=== PATIENT | female | born 2000 | race Caucasian/White ===

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

== ENCOUNTER 2022-11-24 13:06 | Emergency (ER) | payer OTHER ==
--- NOTE | 2022-11-24 13:48 | ED ---
Female Urogenital HPI - General Source: RN notes reviewed <Matilda Barrera - Last Filed: 11/24/22 13:46> - General Source: patient, family, RN notes reviewed <Elizabeth Lopez - Last Filed: 11/25/22 00:27> - General Stated complaint: vaginal pain, recurring uti Time Seen by Provider: 11/24/22 13:46 - History of Present Illness Initial comments: Patient is a 21-year-old female who presents the emergency department for burning with urination. Patient has been on Bactrim since Tuesday without relief. She denies fever, chills, nausea, vomiting. Denies vaginal discharge and itching. No concerns for sexually transmitted infections. (Matilda Barrera) 21-year-old female presents to the emergency department chief complaint of burning following urination. She has been on treatment for urinary tract infection since Tuesday and states that she has not had any improvement. She states that she gets this pain monthly after her menstrual cycle. She states that it has been getting worse. She states that she has had antibiotics for urinary tract infection in the past for the same symptoms which possibly have provided relief. She denies fever, chills, nausea, vomiting. Denies vaginal discharge, itching, odor. Denies urinary frequency. She states that she is sexually active with one partner and has no concerns for sexually transmitted infection. (Elizabeth Lopez) - Related Data Allergies Allergy/AdvReac Type Severity Reaction Status Date / Time No Known Allergies Allergy Verified 11/24/22 13:59 Review of Systems ROS Other: All systems not noted in ROS Statement are negative. <Matilda Barrera - Last Filed: 11/24/22 13:46> ROS Other: All systems not noted in ROS Statement are negative. <Elizabeth Lopez - Last Filed: 11/25/22 00:27> ROS Statement: Those systems with pertinent positive or pertinent negative responses have been documented in the HPI. Past Medical History Past Medical History: No Reported History History of Any Multi-Drug Resistant Organisms: None Reported Past Surgical History: No Surgical Hx Reported Past Psychological History: No Psychological Hx Reported Past Alcohol Use History: None Reported Past Drug Use History: None Reported <Matilda Barrera - Last Filed: 11/24/22 13:46> General Exam <Matilda Barrera - Last Filed: 11/24/22 13:46> Limitations: no limitations General appearance: alert, in no apparent distress Head exam: Present: atraumatic, normocephalic, normal inspection Eye exam: Present: normal appearance, PERRL, EOMI. Absent: scleral icterus, conjunctival injection, periorbital swelling ENT exam: Present: normal exam, mucous membranes moist Neck exam: Present: normal inspection. Absent: tenderness, meningismus, lymphadenopathy Respiratory exam: Present: normal lung sounds bilaterally. Absent: respiratory distress, wheezes, rales, rhonchi, stridor Cardiovascular Exam: Present: regular rate, normal rhythm, normal heart sounds. Absent: systolic murmur, diastolic murmur, rubs, gallop, clicks GI/Abdominal exam: Present: soft, normal bowel sounds. Absent: distended, tenderness, guarding, rebound, rigid External exam: Present: normal external exam Speculum exam: Present: vaginal discharge By manual exam: Present: normal by manual exam Extremities exam: Present: normal inspection, full ROM, normal capillary refill. Absent: tenderness, pedal edema, joint swelling, calf tenderness Back exam: Present: normal inspection Neurological exam: Present: alert, oriented X3 Psychiatric exam: Present: normal affect, normal mood Skin exam: Present: warm, dry, intact, normal color. Absent: rash <Elizabeth Lopez - Last Filed: 11/25/22 00:27> - General Exam Comments Initial Comments: Visual Physical Exam Vital signs reviewed General: Well-appearing, nontoxic, no acute distress. Head: Normocephalic, atraumatic Eyes: PERRLA, EOMI ENT: Airway patent Chest: Nonlabored breathing Skin: No visual rash, normal skin tone Neuro: Alert and oriented 3 Musculoskeletal: No gross abnormalities (HollyMatilda) Course Vital Signs 11/24/22 11/24/22 13:54 18:29 Temperature 99 F 98.7 F Pulse Rate 96 87 Respiratory 18 16 Rate Blood Pressure 136/85 129/72 O2 Sat by Pulse 98 98 Oximetry Medical Decision Making <Elizabeth Lopez - Last Filed: 11/25/22 00:27> - Medical Decision Making Was pt. sent in by a medical professional or institution (, PA, PROFESSIONAL EMPLOYER CONSULTANT, urgent care, hospital, or jail...) When possible be specific @ -No Did you speak to anyone other than the patient for history (EMS, parent, family, police, friend...)? What history was obtained from this source @ -No Did you review nursing and triage notes (agree or disagree)? Why? @ -I reviewed and agree with nursing and triage notes Were old charts reviewed (outside hosp., previous admission, EMS record, old EKG, old radiological studies, urgent care reports/EKG's, jail records)? Report findings @ -No old charts were reviewed Differential Diagnosis (chest pain, altered mental status, abdominal pain women, abdominal pain men, vaginal bleeding, weakness, fever, dyspnea, syncope, headache, dizziness, GI bleed, back pain, seizure, CVA, palpatations, mental health, musculoskeletal)? @ -UTI, BV, vaginitis, PID, this list is not all-inclusive EKG interpreted by me (3pts min.). @ -None X-rays interpreted by me (1pt min.). @ -None done CT interpreted by me (1pt min.). @ -None done U/S interpreted by me (1pt. min.). @ -None done What testing was considered but not performed or refused? (CT, X-rays, U/S, labs)? Why? @ -None What meds were considered but not given or refused? Why? @ -None Did you discuss the management of the patient with other professionals (professionals i.e. , PA, PROFESSIONAL EMPLOYER CONSULTANT, lab, RT, psych nurse, psychiatric social worker, hydraulic repairer, teacher, human resources officer, corrections caseworker)? Give summary @ -No Was smoking cessation discussed for >3mins.? @ -No Was critical care preformed (if so, how long)? @ -No Were there social determinants of health that impacted care today? How? (Homelessness, low income, unemployed, alcoholism, drug addiction, transportation, low edu. Level, literacy, decrease access to med. care, fci, rehab)? @ -No Was there de-escalation of care discussed even if they declined (Discuss DNR or withdrawal of care, Hospice)? DNR status @ -No What co-morbidities impacted this encounter? (DM, HTN, Smoking, COPD, CAD, Cancer, CVA, ARF, Chemo, Hep., AIDS, mental health diagnosis, sleep apnea, morbid obesity)? @ -None Was patient admitted / discharged? Hospital course, mention meds given and route, prescriptions, significant lab abnormalities, going to OR and other pertinent info. @ -Discharge. Patient presented to emergency department chief complaint of burning following urination. Patient was being treated for urinary tract infection but has not had any improvement. UA within normal limits except for culture. Pelvic exam was performed which is not grossly abnormal. Vaginal culture sent and we'll call with results for any abnormality. Patient advised of these findings and to follow up with gynecology and urology for further evaluation. Advised to alternate Tylenol and Motrin as needed for pain. Patient stable at time of discharge. Case discussed with my attending,Dr. Trotter Undiagnosed new problem with uncertain prognosis? @ -No Drug Therapy requiring intensive monitoring for toxicity (Heparin, Nitro, Insulin, Cardizem)? @ -No Were any procedures done? @ -No Diagnosis/symptom? @ -Dysuria Acute, or Chronic, or Acute on Chronic? @ -Acute Uncomplicated (without systemic symptoms) or Complicated (systemic symptoms)? @ -Uncomplicated Side effects of treatment? @ -No Exacerbation, Progression, or Severe Exacerbation? @ -No Poses a threat to life or bodily function? How? (Chest pain, [place], MA, pneumonia, PE, COPD, DKA, ARF, appy, cholecystitis, CVA, Diverticulitis, Homicidal, Suicidal, threat to staff... and all critical care pts) @ -No (Elizabeth Lopez) - Lab Data Lab Results 11/24/22 Range/Units 14:02 Urine Color Light Yellow Urine Appearance Clear (Clear) Urine pH 5.5 (5.0-8.0) Ur Specific [place] 1.004 (1.001-1.035) Urine Protein Negative (Negative) Urine Glucose (UA) Negative (Negative) Urine Ketones Negative (Negative) Urine Blood Negative (Negative) Urine Nitrite Negative (Negative) Urine Bilirubin Negative (Negative) Urine Urobilinogen <2.0 (<2.0) mg/dL Ur Leukocyte Esterase Negative (Negative) Disposition <Matilda Barrera - Last Filed: 11/24/22 13:46> Is patient prescribed a controlled substance at d/c from ED?: No Time of Disposition: 17:58 <Elizabeth Lopez - Last Filed: 11/25/22 00:27> Clinical Impression: Dysuria Disposition: HOME SELF-CARE Condition: Stable Instructions (If sedation given, give patient instructions): Dysuria (ED) Additional Instructions: Alternate Tylenol and Motrin as needed for pain. Follow-up with your primary care provider and urology. Return to the emergency department for new or worsening symptoms. Referrals: Alexis Velasco MD [Primary Care Provider] - 1-2 days José Miguel Steiner MD [STAFF PHYSICIAN] - 1-2 days
[2022-11-24 14:35] LABS: Appearance,Urine Clear (Clear); Bilirubin,Urine Negative (Negative); Blood,Urine Negative (Negative); Color,Urine Light Yellow; Glucose,Urine (UA) Negative (Negative); Ketones,Urine Negative (Negative); Leukocyte Esterase,Urine Negative (Negative); Nitrite,Urine Negative (Negative); PH, Urine 5.5 (5.0-8.0); Protein,Urine Negative (Negative); Specific Gravity,Urine 1.004 (1.001-1.035); Urobilinogen,Urine <2.0 mg/dL (<2.0)
[2022-11-24 18:31] VITALS: BP 129/72; PULSE 87; RESP 16; TEMP 98.7
== END 2022-11-24 18:31 | disposition home or self-care (01) ==
LOC: EC 13:06
DX: R30.0 Dysuria (principal)
CPT/HCPCS: 81003; 87070; 99283

== ENCOUNTER → 2022-12-24 | Outpatient (CLI) | payer OTHER ==
--- NOTE | 2022-12-24 16:07 | US ---
EXAMINATION TYPE: US pelvic complete DATE OF EXAM: 12/24/2022 COMPARISON: NONE CLINICAL INDICATION: Female, 21 years old with history of R10.2 PELVIC AND PERINEAL PAIN; Pt states g eneralized pelvic pain x couple of months TECHNIQUE: Transabdominal (TA). Transabdominal sonographic images of the pelvis were acquired. Date of LMP: 12/12/2022 EXAM MEASUREMENTS: Uterus: 7.6 x 3.5 x 4.0 cm Endometrial Stripe: 0.4 cm Right Ovary: 2.5 x 2.1 x 1.4 cm Left Ovary: 1.8 x 2.2 x 2.0 cm 1. Uterus: Anteverted wnl 2. Endometrium: wnl 3. Right Ovary: wnl 4. Left Ovary: wnl 5. Bilateral Adnexa: wnl 6. Posterior cul-de-sac: wnl No abnormality visualized within pelvis IMPRESSION: No discrete abnormality seen.
== END | disposition home or self-care (01) ==
LOC: RADUSWWP 15:43
PROVIDERS: ATTEND Family Medicine
DX: R10.2 Pelvic and perineal pain (principal)
CPT/HCPCS: 76856

== ENCOUNTER → 2023-02-01 | Outpatient (CLI) | payer OTHER ==
[2023-02-01 15:23] LABS: Appearance,Urine Clear (Clear); Bilirubin,Urine Negative (Negative); Blood,Urine Negative (Negative); Color,Urine Yellow (Yellow); Ketones,Urine Trace (Negative); Nitrite,Urine Negative (Negative); PH, Urine 6.5; Specific Gravity,Urine 1.025 (1.001-1.030)
[2023-02-01 15:53] LABS: Basophils # (A) 0.03 X 10*3/uL (0.00-0.10); Basophils % (A) 0.3 %; HCT 43.6 % (37.2-46.3); HGB 14.5 d/dL (12.0-15.0); Lymphocytes # (A) 1.69 X 10*3/uL (0.90-5.00); MCH 29.1 pg (27.0-32.0); MCHC 33.3 d/dL (32.0-37.0); MCV 87.4 FL (80.0-97.0); Mean Platelet Volume 11.4 FL (9.5-12.2); Monocytes # (A) 0.83 X 10*3/uL (0.20-1.00); Monocytes % (A) 8.3 %; NRBC Per 100 WBC 0 X 10*3/uL (0.00-0.01); Neutrophils # (A) 7.18 X 10*3/uL (1.80-7.70); Platelet Count 242 X 10*3/uL (140-440); RBC 4.99 X 10*6/uL (4.10-5.20); RDW 12.3 % (11.5-14.5); WBC 9.97 X 10*3/uL (4.50-10.00)
[2023-02-01 16:06] LABS: BUN/Creat Ratio 8.44 Ratio (12.00-20.00); Blood Urea Nitrogen 7.6 mg/dL (9.0-27.0); Calcium 9.6 mg/dL (8.7-10.3); Chloride 104 mmol/L (96-109); Glucose 104 mg/dL (70-110); Potassium 3.8 mmol/L (3.5-5.5); Sodium 137 mmol/L (135-145)
[2023-02-01 17:00] LABS: Bacteria,Urine 2+ (None Seen)
== END | disposition home or self-care (01) ==
LOC: LABPAT 09:16
PROVIDERS: ATTEND Urology
DX: Z01.812 Encounter for preprocedural laboratory examination (principal); R31.0 Gross hematuria; R31.29 Other microscopic hematuria
CPT/HCPCS: 80048; 81001; 85025; 87086

== ENCOUNTER 2023-07-20 15:12 | Emergency (ER) | payer OTHER ==
--- NOTE | 2023-07-20 15:31 | ED ---
Abdominal Pain HPI - General Source: patient, RN notes reviewed Mode of arrival: ambulatory Limitations: no limitations <Sonia Jameson - Last Filed: 07/20/23 15:30> - General Source: RN notes reviewed, old records reviewed Mode of arrival: ambulatory Limitations: no limitations - History of Present Illness MD Complaint: abdominal pain (Hemorrhoid pain) -: days(s) Migration to: no migration Severity: severe Severity scale (1-10): 9 Consistency: intermittent Improves With: nothing Worsens With: nothing Treatments Prior to Arrival: other (0) <Tre Jackson - Last Filed: 07/28/23 01:31> - General Stated Complaint: hemorrhoid flare up with abd/back pain Time Seen by Provider: 07/20/23 15:30 - History of Present Illness Initial Comments: Quick note: Patient is a 22-year-old female presented to the ER with chief complaint of hemorrhoid flare and bilateral abdominal and flank pain. Patient states this been going on for couple of days. Denies any urinary complaints, constipation or diarrhea. (Sonia Jameson) This is a 22-year-old female to ER for evaluation of increasing abdominal pain occasional abdominal pain with known history of hemorrhoids and some bleeding when she wipes her bottom. Patient has no acute bleeding here in the ER no nausea vomiting, no fevers (Tre Jackson) - Related Data Home Medications Medication Instructions Recorded Confirmed Escitalopram [Lexapro] 20 mg PO QAM 02/03/23 02/08/23 Marisela Fe 1.5 - 30 tab PO QAM 02/03/23 02/08/23 Previous Rx's Medication Instructions Recorded Ketorolac [Toradol] 10 mg PO Q6HR PRN #10 tab 02/08/23 Hydrocortisone Suppository 25 mg RECTAL BID #30 suppositor 07/20/23 [Anusol-Hc] Hydrocortisone [Anusol-Hc] 1 applic RECTAL BID #30 gm 07/20/23 Allergies Allergy/AdvReac Type Severity Reaction Status Date / Time No Known Allergies Allergy Verified 07/20/23 15:35 Review of Systems ROS Other: All systems not noted in ROS Statement are negative. <Sonia Jameson - Last Filed: 07/20/23 15:30> ROS Other: All systems not noted in ROS Statement are negative. <Tre Jackson - Last Filed: 07/28/23 01:31> ROS Statement: Those systems with pertinent positive or pertinent negative responses have been documented in the HPI. Past Medical History Past Medical History: No Reported History History of Any Multi-Drug Resistant Organisms: None Reported Past Surgical History: Orthopedic Surgery Additional Past Surgical History / Comment(s): knee Smoking Status: Never smoker <Sonia Jameson - Last Filed: 07/20/23 15:30> General Exam <Sonia Jameson - Last Filed: 07/20/23 15:30> General appearance: alert, in no apparent distress Head exam: Present: atraumatic, normocephalic, normal inspection Eye exam: Present: normal appearance, PERRL, EOMI. Absent: scleral icterus, conjunctival injection, periorbital swelling ENT exam: Present: normal exam, mucous membranes moist Neck exam: Present: normal inspection. Absent: tenderness, meningismus, lymphadenopathy Respiratory exam: Present: normal lung sounds bilaterally. Absent: respiratory distress, wheezes, rales, rhonchi, stridor Cardiovascular Exam: Present: regular rate, normal rhythm, normal heart sounds. Absent: systolic murmur, diastolic murmur, rubs, gallop, clicks GI/Abdominal exam: Present: soft, normal bowel sounds. Absent: distended, tenderness, guarding, rebound, rigid Rectal exam: Present: hemorrhoids Extremities exam: Present: normal inspection, full ROM, normal capillary refill. Absent: tenderness, pedal edema, joint swelling, calf tenderness Back exam: Present: normal inspection Neurological exam: Present: alert, oriented X3, CN II-XII intact Psychiatric exam: Present: normal affect, normal mood Skin exam: Present: warm, dry, intact, normal color. Absent: rash <Tre Jackson - Last Filed: 07/28/23 01:31> - General Exam Comments Initial Comments: Visual Physical Exam Vital signs reviewed General: Well-appearing, nontoxic, no acute distress. Head: Normocephalic, atraumatic Eyes: PERRLA, EOMI ENT: Airway patent Chest: Nonlabored breathing Skin: No visual rash, normal skin tone Neuro: Alert and oriented 3 Musculoskeletal: No gross abnormalities (Sonia Jameson) Course <Tre Jackson - Last Filed: 07/28/23 01:31> Vital Signs 07/20/23 15:31 Temperature 99.7 F H Pulse Rate 98 Respiratory 18 Rate Blood Pressure 139/84 O2 Sat by Pulse 97 Oximetry - Reevaluation(s) Reevaluation #1: Medical records reviewed (Tre Jackson) Reevaluation #2: Patient symptoms improved (Tre Jackson) Reevaluation #3: Patient informed of results and questions answered (Tre Jackson) Reevaluation #4: Was pt. sent in by a medical professional or institution (LEROY Cardenas, YARD CALLER, urgent care, hospital, or assisted...) When possible be specific @ -no Did you speak to anyone other than the patient for history (EMS, parent, family, police, friend...)? What history was obtained from this source @ -no Did you review nursing and triage notes (agree or disagree)? Why? @ -agree Are old charts reviewed (outside hosp., previous admission, EMS record, old EKG, old radiological studies, urgent care reports/EKG's, assisted records)? Re port findings @ -yes Differential Diagnosis (chest pain, altered mental status, abdominal pain women, abdominal pain men, vaginal bleeding, weakness, fever, dyspnea, syncope, headache, dizziness, GI bleed, back pain, seizure, CVA, palpatations, mental health, musculoskeletal)? @ -prior EKG interpreted by me (3pts min.). @ -yes X-rays interpreted by me (1pt min.). @ -no CT interpreted by me (1pt min.). @ -no U/S interpreted by me (1pt. min.). @ -no What testing was considered but not performed or refused? (CT, X-rays, U/S, labs)? Why? @ -none What meds were considered but not given or refused? Why? @ -none Did you discuss the management of the patient with other professionals (michel aquino i.e. LEROY Cardenas, YARD CALLER, lab, RT, psych nurse, social organization professor, machine wedger, teacher, toxics program officer, continuous pillowcase cutter)? Give summary @ -no Was smoking cessation discussed for >3mins.? @ -no Was critical care preformed (if so, how long)? @ -no Were there social determinants of health that impacted care today? How? (Homelessness, low income, unemployed, alcoholism, drug addiction, transportation, low edu. Level, literacy, decrease access to med. care, group home, rehab)? @ -none Was there de-escalation of care discussed even if they declined (Discuss DNR or withdrawal of care, Hospice)? DNR status @ -no What co-morbidities impacted this encounter? (DM, HTN, Smoking, COPD, CAD, Cancer, CVA, ARF, Chemo, Hep., AIDS, mental health diagnosis, sleep apnea, morbid obesity)? @ -none Was patient admitted / discharged? Hospital course, mention meds given and route, prescriptions, significant lab abnormalities, going to OR and other pertinent info. @ - 22 female to ER for evaluation of abdominal pain with occasional GI bleed, patient does have hemorrhoids found here in the ER with no acute thrombosis. Patient can be discharged home Discharge Undiagnosed new problem with uncertain prognosis? @ -no Drug Therapy requiring intensive monitoring for toxicity (Heparin, Nitro, Insulin, Cardizem)? @ -no Were any procedures done? @ -no Diagnosis/symptom? @ - Acute, or Chronic, or Acute on Chronic? @ -Acute Uncomplicated (without systemic symptoms) or Complicated (systemic symptoms)? @ -Complicated Side effects of treatment? @ -no Exacerbation, Progression, or Severe Exacerbation? @ -exacerbation Poses a threat to life or bodily function? How? (Chest pain, USA, PR, pneumonia, PE, COPD, DKA, ARF, appy, cholecystitis, CVA, Diverticulitis, Homicidal, Suicidal, threat to staff... and all critical care pts) @ -yno (Tre Jackson) Reevaluation #5: Differential Abdominal Pain Women: Appendicitis, Cholecystitis, diverticulosis, ischemic bowel, pancreatitis, hepatitis, UTI, gastroenteritis, AAA, incarcerated hernia, bowel obstruction, constipation, inflammatory bowel, hepatitis, peptic ulcer disease, splenic infarction, perforated viscus, vulvitis, ovarian torsion, PID, kidney stone, placenta abruption, this is not meant to be an all-inclusive list (Tre Jackson) Medical Decision Making <Sonia Jameson - Last Filed: 07/20/23 15:30> - Lab Data Result diagrams: 07/20/23 16:15 07/20/23 16:15 <Tre Jackson - Last Filed: 07/28/23 01:31> - Medical Decision Making I performed the quick note portion of this chart. Electronically signed by Sonia Jameson PA-C (Sonia Jameson) 22 female to ER for evaluation of abdominal pain with occasional GI bleed, patient does have hemorrhoids found here in the ER with no acute thrombosis. Patient can be discharged home (Tre Jackson) - Lab Data Lab Results 07/20/23 07/20/23 07/20/23 Range/Units 16:15 16:15 16:15 WBC 16.9 H (3.8-10.6) k/uL RBC 4.80 (3.80-5.40) m/uL Hgb 14.0 (11.4-16.0) gm/dL Hct 41.6 (34.0-46.0) % MCV 86.7 (80.0-100.0) fL MCH 29.2 (25.0-35.0) pg MCHC 33.7 (31.0-37.0) g/dL RDW 11.9 (11.5-15.5) % Plt Count 326 (150-450) k/uL MPV 7.9 Neutrophils % 80 % Lymphocytes % 13 % Monocytes % 4 % Eosinophils % 1 % Basophils % 1 % Neutrophils # 13.6 H (1.3-7.7) k/uL Lymphocytes # 2.2 (1.0-4.8) k/uL Monocytes # 0.7 (0-1.0) k/uL Eosinophils # 0.2 (0-0.7) k/uL Basophils # 0.1 (0-0.2) k/uL Sodium 137 (137-145) mmol/L Potassium 3.7 (3.5-5.1) mmol/L Chloride 105 (98-107) mmol/L Carbon Dioxide 21 L (22-30) mmol/L Anion Gap 11 mmol/L BUN 11 (7-17) mg/dL Creatinine 0.87 (0.52-1.04) mg/dL Est GFR (CKD-EPI)AfAm >90 (>60 ml/min/1.73 sqM) Est GFR (CKD-EPI)NonAf >90 (>60 ml/min/1.73 sqM) Glucose 88 (74-99) mg/dL Plasma Lactic Acid Atul 0.8 (0.7-2.0) mmol/L Calcium 9.5 (8.4-10.2) mg/dL Total Bilirubin 0.5 (0.2-1.3) mg/dL AST 43 H (14-36) U/L ALT 79 H (4-34) U/L Alkaline Phosphatase 71 (38-126) U/L Total Protein 7.8 (6.3-8.2) g/dL Albumin 4.2 (3.5-5.0) g/dL Amylase 53 (30-110) U/L Lipase 73 (23-300) U/L Urine Color Urine Appearance (Clear) Urine pH (5.0-8.0) Ur Specific [place] (1.001-1.035) Urine Protein (Negative) Urine Glucose (UA) (Negative) Urine Ketones (Negative) Urine Blood (Negative) Urine Nitrite (Negative) Urine Bilirubin (Negative) Urine Urobilinogen (<2.0) mg/dL Ur Leukocyte Esterase (Negative) Urine RBC (0-5) /hpf Urine WBC (0-5) /hpf Ur Squamous Epith Cells (0-4) /hpf Urine Bacteria (None) /hpf Urine Mucus (None) /hpf Urine HCG, Qual (Not Detectd) 07/20/23 07/20/23 Range/Units 17:17 17:17 WBC (3.8-10.6) k/uL RBC (3.80-5.40) m/uL Hgb (11.4-16.0) gm/dL Hct (34.0-46.0) % MCV (80.0-100.0) fL MCH (25.0-35.0) pg MCHC (31.0-37.0) g/dL RDW (11.5-15.5) % Plt Count (150-450) k/uL MPV Neutrophils % % Lymphocytes % % Monocytes % % Eosinophils % % Basophils % % Neutrophils # (1.3-7.7) k/uL Lymphocytes # (1.0-4.8) k/uL Monocytes # (0-1.0) k/uL Eosinophils # (0-0.7) k/uL Basophils # (0-0.2) k/uL Sodium (137-145) mmol/L Potassium (3.5-5.1) mmol/L Chloride (98-107) mmol/L Carbon Dioxide (22-30) mmol/L Anion Gap mmol/L BUN (7-17) mg/dL Creatinine (0.52-1.04) mg/dL Est GFR (CKD-EPI)AfAm (>60 ml/min/1.73 sqM) Est GFR (CKD-EPI)NonAf (>60 ml/min/1.73 sqM) Glucose (74-99) mg/dL Plasma Lactic Acid Atul (0.7-2.0) mmol/L Calcium (8.4-10.2) mg/dL Total Bilirubin (0.2-1.3) mg/dL AST (14-36) U/L ALT (4-34) U/L Alkaline Phosphatase (38-126) U/L Total Protein (6.3-8.2) g/dL Albumin (3.5-5.0) g/dL Amylase (30-110) U/L Lipase (23-300) U/L Urine Color Yellow Urine Appearance Clear (Clear) Urine pH 6.0 (5.0-8.0) Ur Specific [place] 1.025 (1.001-1.035) Urine Protein Trace H (Negative) Urine Glucose (UA) Negative (Negative) Urine Ketones 1+ H (Negative) Urine Blood Small H (Negative) Urine Nitrite Negative (Negative) Urine Bilirubin Negative (Negative) Urine Urobilinogen <2.0 (<2.0) mg/dL Ur Leukocyte Esterase Negative (Negative) Urine RBC 5 (0-5) /hpf Urine WBC 1 (0-5) /hpf Ur Squamous Epith Cells <1 (0-4) /hpf Urine Bacteria Occasional H (None) /hpf Urine Mucus Many H (None) /hpf Urine HCG, Qual Not Detected (Not Detectd) Disposition <Sonia Jameson - Last Filed: 07/20/23 15:30> Is patient prescribed a controlled substance at d/c from ED?: No When asked, does pt state using other controlled substances?: No Time of Disposition: 18:00 <Tre Jackson - Last Filed: 07/28/23 01:31> Clinical Impression: Abdominal pain, Hemorrhoid Disposition: HOME SELF-CARE Condition: Good Instructions (If sedation given, give patient instructions): Hemorrhoids (ED), Abdominal Pain (ED) Prescriptions: Hydrocortisone Suppository [Anusol-Hc] 25 mg RECTAL BID #30 suppositor Hydrocortisone [Anusol-Hc] 1 applic RECTAL BID #30 gm Referrals: Alexis Velasco MD [Primary Care Provider] - 1-2 days
[2023-07-20 15:40] VITALS: BP 139/84; PULSE 98; RESP 18; TEMP 99.7
[2023-07-20 16:39] LABS: Basophils # (A) 0.1 k/uL (0-0.2); Basophils % (A) 1 %; Eosinophils # (A) 0.2 k/uL (0-0.7); Eosinophils % (A) 1 %; HCT 41.6 % (34.0-46.0); Lymphocytes # (A) 2.2 k/uL (1.0-4.8); Lymphocytes % (A) 13 %; MCH 29.2 pg (25.0-35.0); MCHC 33.7 g/dL (31.0-37.0); MCV 86.7 fL (80.0-100.0); Mean Platelet Volume 7.9; Monocytes # (A) 0.7 k/uL (0-1.0); Monocytes % (A) 4 %; Neutrophils # (A) 13.6 k/uL (1.3-7.7); Neutrophils % (A) 80 %; Platelet Count 326 k/uL (150-450); RDW 11.9 % (11.5-15.5); WBC 16.9 k/uL (3.8-10.6)
[2023-07-20 17:02] LABS: ALT 79 U/L (4-34); AST 43 U/L (14-36); African American GFR (CKD) >90 (>60 ml/min/1.73 sqM); Albumin 4.2 g/dL (3.5-5.0); Alkaline Phosphatase 71 U/L (38-126); Amylase 53 U/L (30-110); Anion Gap 11 mmol/L; Blood Urea Nitrogen 11 mg/dL (7-17); Calcium 9.5 mg/dL (8.4-10.2); Carbon Dioxide 21 mmol/L (22-30); Chloride 105 mmol/L (98-107); Glucose 88 mg/dL (74-99); Lipase 73 U/L (23-300); Non-African American GFR(CKD) >90 (>60 ml/min/1.73 sqM); Potassium 3.7 mmol/L (3.5-5.1); Sodium 137 mmol/L (137-145); Total Bilirubin 0.5 mg/dL (0.2-1.3); Total Protein 7.8 g/dL (6.3-8.2)
[2023-07-20 18:17] LABS: Appearance,Urine Clear (Clear); Bacteria,Urine Occasional /hpf; Bilirubin,Urine Negative (Negative); Blood,Urine Small (Negative); Color,Urine Yellow; Glucose,Urine (UA) Negative (Negative); Ketones,Urine 1+ (Negative); Leukocyte Esterase,Urine Negative (Negative); Mucus,Urine Many /hpf; Nitrite,Urine Negative (Negative); Protein,Urine Trace (Negative); RBC,Urine 5 /hpf (0-5); Specific Gravity,Urine 1.025 (1.001-1.035); Squamous Epithelial Cell,Urine <1 /hpf (0-4); Urobilinogen,Urine <2.0 mg/dL (<2.0); WBC,Urine 1 /hpf (0-5)
[2023-07-20] MEDS: HYDROCORTISONE SUPPOSITORY 25 MG SUPP RECTAL STA (18:57)
== END 2023-07-20 19:04 | disposition home or self-care (01) ==
LOC: EC 15:12
DX: K64.9 Unspecified hemorrhoids (principal)
CPT/HCPCS: 36415; 80053; 81001; 81025; 82150; 83605; 83690; 85025; 99284

== ENCOUNTER → 2023-08-04 | Outpatient (CLI) | payer OTHER ==
--- NOTE | 2023-08-04 18:10 | XR ---
PROCEDURE: XR ankle complete bilateral - 3V DATE AND TIME: 08/04/2023 5:51 PM CLINICAL INDICATION: PH[facility]; [employer] TECHNIQUE: Department protocol COMPARISON: None FINDINGS / IMPRESSION: Right Ankle: 3 views were obtained. There is no fracture or malalignment. The mortise is intact. The soft tissues are unremarkable. Dorsal midfoot osteophytic spurring noted. Left Ankle: 3 views were obtained. There is no fracture or malalignment. Mortise is intact. The soft tissues are unremarkable. Dorsal midfoot osteophytic spurring noted.
== END | disposition home or self-care (01) ==
LOC: RADXRMAIN 17:28
PROVIDERS: ATTEND Family Medicine
DX: M25.772 Osteophyte, left ankle (principal); M25.771 Osteophyte, right ankle

== ENCOUNTER → 2023-11-26 | Outpatient (CLI) | payer OTHER ==
[2023-11-26 23:27] LABS: Basophils # (A) 0.04 X 10*3/uL (0.00-0.10); Basophils % (A) 0.5 %; Eosinophils % (A) 1.3 %; Lymphocytes # (A) 1.99 X 10*3/uL (0.90-5.00); Lymphocytes % (A) 25.3 %; MCHC 32.6 g/dL (32.0-37.0); Mean Platelet Volume 11.3 FL (9.5-12.2); Monocytes # (A) 0.43 X 10*3/uL (0.20-1.00); Monocytes % (A) 5.5 %; NRBC Per 100 WBC 0 X 10*3/uL (0.00-0.01); Neutrophils # (A) 5.28 X 10*3/uL (1.80-7.70); Neutrophils % (A) 67.1 %; Platelet Count 282 X 10*3/uL (140-440); RDW 13.2 % (11.5-14.5); WBC 7.86 X 10*3/uL (4.50-10.00)
[2023-11-27 08:08] LABS: % Iron Saturation 17.28 (12.00-45.00); Ferritin 80.4 ng/mL (10.0-291.0)
== END | disposition home or self-care (01) ==
LOC: LABWHC1 10:09
PROVIDERS: ATTEND Family Medicine
DX: D50.9 Iron deficiency anemia, unspecified (principal); Z80.9 Family history of malignant neoplasm, unspecified
CPT/HCPCS: 36415; 82607; 82728; 82746; 83540; 83550; 85025